=== PATIENT | male | born 1960 | race Two or more races ===

== ENCOUNTER 2023-07-31 06:45 | Day surgery (SDC) | payer OTHER ==
[2023-07-31] MEDS ORDERED: FLUMAZENIL 0.5 MG/5ML ML IV STA (10:04)
[2023-07-31] MEDS ORDERED: fentaNYL CITRATE 50 MCG/ML AMPUL IV PUSH ONE (10:15)
[2023-07-31] MEDS ORDERED: MIDAZOLAM HCL 2 MG/2 ML VIAL IV ONE (10:15)
[2023-07-31] MEDS ORDERED: DIPHENHYDRAMINE HCL 50 MG/ML VIAL 1ML IV ONE (10:15)
== END 2023-07-31 11:35 | disposition home or self-care (01) ==
LOC: CIR.AMB 06:45
PROVIDERS: ATTEND Surgery
DX: D12.2 Benign neoplasm of ascending colon (principal); K63.5 Polyp of colon; K57.30 Diverticulosis of large intestine without perforation or abscess without bleeding